=== PATIENT | male | born 1960 | race Caucasian/White ===

== ENCOUNTER 2022-02-19 09:11 | Day surgery (SDC) | payer MEDICAID, SELFPAY ==
[2022-02-19] MEDS: LACTATED RINGERS 1000 ML 1,000 ML 100 ML IV (09:57)
[2022-02-19] MEDS: SODIUM CHLORIDE 0.9 % (FLUSH) 10 ML SYRINGE IVF (09:57)
[2022-02-19 10:02] VITALS: BP 138/73; PULSE 78; RESP 20; TEMP 36.7; O2SAT 98; BMI 24.5
[2022-02-19] MEDS: CEFAZOLIN 2 GM INJ IVP (12:02)
[2022-02-19] MEDS: BUPIVACAINE 0.25% 30 ML 20 ML INJECTION (13:10)
[2022-02-19 14:03] VITALS: BP 149/78; PULSE 63; RESP 18; TEMP 36.4; O2SAT 98
--- NOTE | 2022-02-19 14:05 | W.ANESCHARGE ---
Anesthesia Charges Start Date/Time Anesthesia Start Date: 02/19/22 Anesthesia Start Time: 11:54 Stop Date/Time Anesthesia Stop Date: 02/19/22 Anesthesia Stop Time: 14:05 Summary Emergency: No
[2022-02-19 14:17] VITALS: BP 157/90; PULSE 69; RESP 18; O2SAT 96
--- NOTE | 2022-02-19 14:19 | W.ANESCHARGE ---
Anesthesia Charges Start Date/Time Anesthesia Start Date: 02/19/22 Anesthesia Start Time: 11:54 Stop Date/Time Anesthesia Stop Date: 02/19/22 Anesthesia Stop Time: 14:05 Summary Emergency: No
--- NOTE | 2022-02-19 14:39 | P.GSOP_ITS ---
Operative Note Date of procedure: 02/19/22 Type of Procedure: 1. Open right inguinal hernia repair with mesh. Procedure Description: After discussing the risks and benefits of the procedure, the patient signed informed consent.? The operative site was marked and the patient was brought to the operating room and placed on the operating table in supine position.? Care was taken to pad the patient's pressure points.?? The patient was then sedated by anesthesia.?? The operative site was then prepped and draped in the usual sterile fashion.? A time-out was then performed. Surgical site was prepped and draped in sterile fashion. Site of the incision wa s marked with a marking pen and local anesthetic was injected. An oblique incision was made just above and medial to the right inguinal ligament. Subcutaneous tissue was dissected to external obliques. Superficial subcutaneous vascular branches were clamped, divided and tied with 3-0 Vicryl ties. Small incision was made through the external oblique aponeurosis with scalpel. I then used Metzenbaum scissors to dissect under external obliques and extend my incision. Mosquito clamps were placed on the edges of external oblique exposing the inguinal floor. The right Ilioinguinal nerve was identified and was branching through the plain of dissection. The nerve was divided proximally and distally and a 3 cm segment of it was excised. This was not sent to pathology. I then identified the spermatic cord and the hernia sac. I bluntly dissected subcutaneous tissues in order to place Cristino drain around the cord structures. Cremasteric fibers were peeled off and dissected off the hernia sac and cord structures. There was an indirect inguinal hernia sac as well as a fatty cord lipoma. The hernia sac was from the spermatic cord bluntly and with cautery. The indirect hernia sac was incised and examined from the inside. The medial wall of the hernia sac was fatty. Omentum was incarcerated in the hernia sac and that was easily reduced. The hernia sack was tied with 0-0 Vicryl stick tie at the base of the hernia sac with care taken not to incarcerate the omentum. The hernia sac was then excised with cautery and the free edge of the hernia sac was closed with a running locking Vicryl suture. This was then pushed into preperitoneal space through the internal ring. Surgical field was examined for bleeding and hemostasis was achieved with cautery and Vicryl ties. A cord lipoma was then dissected off of the cord. The proximal end of the cord lipoma had a firm palpable nodule lateral to the hernia sac. It was difficult to tell what this nodule was and was possibly a lymph node. Small blood vessels were going into this nodule. 2-0 Prolene was used to tag this tissue to the external oblique layer superior laterally. A large Bard mesh plug was inserted through the internal ring and secured to the adjacent tissues with interrupted 0-0 Neurolon sutures. A large Bard mesh with a precut keyhole was then used for hernia repair. The mesh onlay was sutured in place with interrupted 0-0 Neurolon sutures to the conjoint tendon medially and shelving edge laterally, pubic tubercle inferiorly. Simple interrupted sutures were placed using 0-0 Neurolon at the base of internal inguinal ring making it only large enough to fit a tip of one finger through. Spermatic cord was placed back into scrotum. Cristino drain was removed. External oblique aponeurosis was closed with a running Vicryl suture. Additional local anesthetic was injected into subcutaneous tissues. Bhavin's fascia and subcutaneous tissue was re- approximated with interrupted Vicryl stitches. Skin incision was closed with 4-0 Monocryl subcuticular stitch. Steri strips and sterile dressing were applied over incision. All counts were correct at the end of the case. Patient tolerated this procedure well and was transferred to PACU in stable condition. ? Findings: Indirect hernia sac and moderately sized cord lipoma. The cord lipoma had a thickened nodule of unknown etiology, ? lymph node. Implants: Mesh plug and mesh onlay Anesthesia: MAC and local Surgeon: Inocencia King MD Estimated blood loss (mL): 5 Condition: stable Disposition: same day
[2022-02-19 14:42] VITALS: BP 165/80; PULSE 69; RESP 18; O2SAT 97
[2022-02-19] MEDS: HYDROCODONE-ACETAMIN 5-325 MG 1 TAB PO (14:47)
[2022-02-19 15:06] VITALS: BP 161/88; PULSE 72; RESP 16; O2SAT 97
== END 2022-02-19 15:37 | disposition home or self-care (01) ==
PROVIDERS: Visit Provider Surgery
PROC: (CPT 49507; principal; 2022-02-19 11:15)
DX: K40.30 Unilateral inguinal hernia, with obstruction, without gangrene, not specified as recurrent (principal)
CPT/HCPCS: 49507; 00830; 88305; A9270; C1781; J0690; J1170; J2250; J2405; J2704; J3010; J3490; J7120